=== PATIENT | male | born 1970 | race Caucasian/White ===

== ENCOUNTER 2021-12-12 00:14 | Emergency (ER) | payer SELFPAY ==
[2021-12-12 00:24] VITALS: BP 136/74; PULSE 99; RESP 18; TEMP 36.5; O2SAT 94
--- NOTE | 2021-12-12 02:26 | PC.NURSE ---
Pt up to desk, states he has to go and pick his up and take her home, and will be back to be seen in approx 45 min. Explained will have to be reregistered if he leaves at this time. Verbalizes understanding.
== END 2021-12-12 02:30 | disposition left against medical advice (07) ==
LOC: ANHED 02:34
DX: R07.9 Chest pain, unspecified (principal)
CPT/HCPCS: 99199